=== PATIENT | female | born 1970 | race Caucasian/White ===

== ENCOUNTER 2021-02-14 11:04 | Emergency (ER) | payer MEDICAID ==
[~2021-02-14] VITALS: Ht 162.6 cm; Wt 84.0 kg
[2021-02-14 11:25] VITALS: BP 148/84
[2021-02-14] MEDS ORDERED: IBUP-2029 MT (11:26)
[2021-02-14] MEDS ORDERED: CLIN300C12 MT (11:26)
[2021-02-14] MEDS ORDERED: HYDR-4001 MT (11:26)
[2021-02-14] MEDS ORDERED: KETOROLAC 60MG/2ML VIAL IM ONE (11:30)
== END 2021-02-14 11:33 | disposition home or self-care (01) ==
LOC: ER 11:04
DX: R51.9 Headache, unspecified (principal)
CPT/HCPCS: 96372; 99283; J1885